=== PATIENT | male | born 1985 | race Caucasian/White ===

== ENCOUNTER 2020-11-12 18:37 | Observation (INO) ==
[2020-11-12 19:13] LABS: Basophils # 0.1 K/mcL (0.0-0.2); Basophils % 0.4 %; Eosinophils # 0.2 K/mcL (0.0-0.6); Eosinophils % 1.4 %; Hematocrit 41.8 % (37.5-50.1); Hemoglobin 14.7 g/dL (12.9-16.9); Immature Granulocytes % 0.7 % (0-4); Lymphocytes # 2.7 K/mcL (0.6-4.6); Lymphocytes % 17.1 %; Mean Corpuscular HGB Conc 35.2 g/dL (31.6-35.5); Mean Corpuscular Hemoglobin 29.5 pg (28.0-33.3); Mean Corpuscular Volume 83.9 fL (83.0-100.0); Mean Platelet Volume 9.8 fL (9.4-12.4); Monocytes % 6.2 %; Platelet Count 302 K/mcL (140-400); Red Blood Count 4.98 M/mcL (4.19-5.50); Red Cell Distribution Width 12.8 % (11.5-14.5); Segmented Neutrophils % 74.2 %
[2020-11-12 19:16] LABS: Neutrophils # 11.9 K/mcL (1.6-8.9)
[2020-11-12 19:20] LABS: INR 1.2; Prothrombin Time 14.2 Seconds (9.4-12.1)
[2020-11-12] MEDS ORDERED: 0.9 % Sodium Chloride 1,000 ML IVC ONE (19:20)
[2020-11-12 19:26] LABS: BUN/Creatinine Ratio 14 (6-26); Blood Urea Nitrogen 18 mg/dL (6-20); Calcium 8.3 mg/dL (8.6-10.3); Carbon Dioxide 27 mEq/L (23-29); Chloride 105 mEq/L (98-107); Glucose 126 mg/dL (70-105); Magnesium 1.9 mg/dL (1.6-2.6); Osmolality,Calculated 291 (280-300); Potassium 3.8 mEq/L (3.5-5.1); Sodium 139 mEq/L (136-145); eGFR For African Americans > 60 (> 60); eGFR For Non-African Americans > 60 (> 60)
[2020-11-12 19:31] LABS: Troponin I < 0.03 ng/mL (< 0.04)
[2020-11-12] MEDS ORDERED: Potassium Effervescent 25 MEQ TABLET.EFF PO ONE (19:33)
[2020-11-12] MEDS ORDERED: 0.9 % Sodium Chloride 500 ML IVC ONE (20:06)
[2020-11-12] MEDS ORDERED: Azithromycin 500 MG in D5% in Water 250 ML IVPB ONE (20:15)
[2020-11-12] MEDS ORDERED: Ibuprofen 400 MG TABLET PO PRN (21:44)
[2020-11-12] MEDS ORDERED: Naloxone 0.4 MG/ML INJ IVP PRN ×2 (21:44)
[2020-11-12] MEDS ORDERED: Ondansetron ODT 4 MG TAB.RAPDIS SL PRN (21:44)
[2020-11-12] MEDS: carvediloL 25 MG TABLET PO SCH (22:32)
[2020-11-12] MEDS: lisinopriL 20 MG TABLET PO SCH (22:33)
[2020-11-12] MEDS: 0.9 % Sodium Chloride 1,000 ML IVC SCH (22:47)
[2020-11-13 01:59] LABS: Bilirubin,Urine Negative (Negative); Blood,Urine Negative (Negative); Clarity,Urine Clear (Clear); Color,Urine Yellow (Yellow); Glucose,Urine (UA) Normal (Normal); Ketones,Urine Negative (Negative); Leukocyte Esterase,Urine Negative (Negative); Nitrite,Urine Negative (Negative); Protein,Urine 30 mg/dL (Neg-Trace); Specific Gravity,Urine 1.015 (1.010-1.025); Urobilinogen,Urine Normal (Normal)
[2020-11-13 02:03] LABS: Bacteria,Urine Few per hpf (None-Few); Hyaline Casts,Urine Few per lpf (None Seen); Squamous Epithelial Cell,Urine Few per hpf (None-Few); WBC,Urine 0-3 per hpf (0-3)
[2020-11-13] MEDS: 0.9 % Sodium Chloride 1,000 ML IVC SCH (06:25)
[2020-11-13 06:57] LABS: Basophils # 0.1 K/mcL (0.0-0.2); Basophils % 0.4 %; Eosinophils # 0.3 K/mcL (0.0-0.6); Hematocrit 40.2 % (37.5-50.1); Hemoglobin 13.8 g/dL (12.9-16.9); Immature Granulocytes % 0.6 % (0-4); Lymphocytes # 3.4 K/mcL (0.6-4.6); Lymphocytes % 24.3 %; Mean Corpuscular HGB Conc 34.3 g/dL (31.6-35.5); Mean Corpuscular Hemoglobin 29.1 pg (28.0-33.3); Mean Corpuscular Volume 84.8 fL (83.0-100.0); Mean Platelet Volume 9.6 fL (9.4-12.4); Monocytes # 1.2 K/mcL (0.0-1.3); Monocytes % 8.5 %; Platelet Count 246 K/mcL (140-400); Red Blood Count 4.74 M/mcL (4.19-5.50); Red Cell Distribution Width 13.1 % (11.5-14.5); Segmented Neutrophils % 64.2 %; White Blood Count 14.1 K/mcL (4.3-11.1)
[2020-11-13 06:59] LABS: Neutrophils # 9.1 K/mcL (1.6-8.9)
[2020-11-13 07:11] LABS: BUN/Creatinine Ratio 16 (6-26); Blood Urea Nitrogen 15 mg/dL (6-20); Calcium 7.8 mg/dL (8.6-10.3); Carbon Dioxide 30 mEq/L (23-29); Chloride 108 mEq/L (98-107); Glucose 76 mg/dL (70-105); Osmolality,Calculated 292 (280-300); Potassium 3.7 mEq/L (3.5-5.1); Sodium 141 mEq/L (136-145); eGFR For African Americans > 60 (> 60); eGFR For Non-African Americans > 60 (> 60)
[2020-11-13] MEDS ORDERED: Spironolactone 25 MG TABLET PO SCH (09:00)
[2020-11-13] MEDS ORDERED: Furosemide 40 MG TABLET PO SCH (09:00)
[2020-11-13] MEDS: carvediloL 25 MG TABLET PO SCH (09:49)
[2020-11-13] MEDS: lisinopriL 20 MG TABLET PO SCH (09:49)
[2020-11-13 13:09] VITALS: BP 122/84
== END 2020-11-13 14:30 | disposition home or self-care (01) ==
LOC: EMEROOGRE 18:37 → INPGRE 18:37
PROVIDERS: ADMIT Student in an Organized Health Care Education/Training Program; ATTEND Student in an Organized Health Care Education/Training Program